=== PATIENT | female | born 1980 | race Caucasian/White ===

== ENCOUNTER 2020-12-29 10:15 | Inpatient (IN) | payer MEDICAID ==
[~2020-12-29] VITALS: Ht 162.6 cm; Wt 87.1 kg
[2020-12-29] MEDS ORDERED: METHYLERGONOVINE MALEATE 0.2 MG/ML IM PRN ×2 (10:45→23:45)
[2020-12-29] MEDS ORDERED: DEXT 5%/LR + PITOCIN 20UNITS/L 1,000 ML IV SCH (10:45)
[2020-12-29] MEDS ORDERED: BUTORPHANOL TARTRATE 2 MG/ML VIAL IV PRN (10:45)
[2020-12-29] MEDS ORDERED: NALOXONE HCL 0.4 MG/ML 1ML VIAL IM PRN (10:45)
[2020-12-29] MEDS ORDERED: LIDOCAINE HCL 1% 20ML VIAL (Pyxis) INJ INFIL SCH (10:45)
[2020-12-29] MEDS: LACTATED RINGERS 1,000 ML IV SCH ×3 (11:30→21:06)
[2020-12-29 12:29] LABS: CLARITY URINE CLEAR (CLEAR); COLOR URINE YELLOW (YELLOW); KETONES URINE TRACE (NEGATIVE); LEUKOCYTE ESTERASE URINE NEGATIVE (NEGATIVE); NITRITE URINE NEGATIVE (NEGATIVE); OCCULT BLOOD URINE NEGATIVE (NEGATIVE); PROTEIN URINE NEGATIVE (NEGATIVE); UROBILINOGEN URINE 0.2 E.U./dL (0.2-1.0)
[2020-12-29 12:38] LABS: BASOPHILS % 0.8 % (0.0-2.0); EOSINOPHILS % 0.8 % (0.0-5.0); HEMATOCRIT. 35.4 % (36.0-48.0); HEMOGLOBIN. 11.9 g/dL (12.0-16.0); INR 0.9; LYMPHOCYTES % 20.5 % (20.0-50.0); MEAN CORPUSCULAR HEMOGLOBIN 31.8 pg (28.0-32.0); MEAN CORPUSCULAR VOLUME 94.2 fL (81.0-99.0); MEAN PLATELET VOLUME 9.7 fl (7.4-10.4); MONOCYTES % 8.5 % (2.0-8.0); NEUTROPHILS % 69.4 % (40.0-76.0); PARTIAL THROMBOPLASTIN TIME 30.3 sec (23.4-31.0); PLATELET 235 x1000/uL (130-400); PROTHROMBIN TIME 10.1 sec (9.6-11.0); RED BLOOD CELL COUNT 3.75 mill/uL (4.2-5.4); RED CELL DISTRIBUTION WIDTH 12.9 % (11.6-14.6)
[2020-12-29 12:40] LABS: *BENZODIAZEPINES SCREEN URINE NEGATIVE (NEGATIVE); *COCAINE SCREEN URINE NEGATIVE (NEGATIVE); CANNABINOID URINE SCREEN NEGATIVE (NEGATIVE); METHADONE URINE SCREEN NEGATIVE (NEGATIVE); OPIATES URINE SCREEN NEGATIVE (NEGATIVE); PHENCYCLIDINE URINE SCREEN NEGATIVE (NEGATIVE)
[2020-12-29 12:41] LABS: *AMPHETAMINES SCREEN URINE NEGATIVE (NEGATIVE); *BARBITURATES SCREEN URINE NEGATIVE (NEGATIVE)
[2020-12-29 14:49] LABS: HEPATITIS B SURFACE ANTIGEN NEGATIVE
[2020-12-29] MEDS ORDERED: ROPIVACAINE HCL/PF EPIDURAL 200 ML EPI SCH (16:45)
[2020-12-29] MEDS ORDERED: ROPIVACAINE HCL/PF EPIDURAL 0 ML EPI ONE (19:54)
[2020-12-29] MEDS ORDERED: FENTANYL CITRATE/PF 50MCG/ML 2ML VIAL ONE (19:54)
[2020-12-29] MEDS ORDERED: GLYCERIN/WITCH HAZEL LEAF MEDICATED PAD TOP PRN (23:45)
[2020-12-29] MEDS ORDERED: DIPHENHYDRAMINE 25MG CAPSULE PO PRN (23:45)
[2020-12-29] MEDS ORDERED: HEMORRHOIDAL SUPP PR PRN (23:45)
[2020-12-29] MEDS ORDERED: LANOLIN OINT 7GM TUBE TOP PRN (23:45)
[2020-12-29] MEDS ORDERED: BISACODYL 10MG SUPP PR PRN (23:45)
[2020-12-29] MEDS ORDERED: BENZOCAINE/LANOLIN/ALOE VERA SPRAY TOP PRN (23:45)
[2020-12-29] MEDS ORDERED: RHO(D) IMMUNE GLOBULIN 300 MCG/SYR IM PRN (23:45)
[2020-12-29] MEDS ORDERED: IBUPROFEN 400MG TABLET PO PRN (23:45)
[2020-12-30] MEDS: DEXT 5%/LR + PITOCIN 20UNITS/L 1,000 ML IV SCH ×2 (01:30→03:12)
[2020-12-30] MEDS: IBUPROFEN 800MG TABLET PO PRN ×4 (03:08→22:06)
[2020-12-30 05:30] VITALS: BP 97/49
[2020-12-30] MEDS: MAGNESIUM/ALUMINUM HYDROXIDE/SIMETHICONE 30ML UDC PO SCH ×3 (07:30→22:05)
[2020-12-30 08:00] VITALS: BP 92/52
[2020-12-30] MEDS: SIMETHICONE 80MG TABLET CHEW PO SCH ×3 (08:00→22:05)
[2020-12-30] MEDS: PRENATAL VIT/FE FUMARATE/FA TABLET PO SCH (09:00)
[2020-12-30] MEDS ORDERED: METHYLERGONOVINE MALEATE 0.2MG TABLET PO SCH (09:00)
[2020-12-30 09:56] LABS: BASOPHILS % 0.2 % (0.0-2.0); EOSINOPHILS % 0.5 % (0.0-5.0); HEMATOCRIT. 35.1 % (36.0-48.0); HEMOGLOBIN. 11.5 g/dL (12.0-16.0); LYMPHOCYTES % 11.4 % (20.0-50.0); MEAN CORPUSCULAR HEMOGLOBIN 31.6 pg (28.0-32.0); MEAN CORPUSCULAR VOLUME 96.2 fL (81.0-99.0); MEAN PLATELET VOLUME 9.4 fl (7.4-10.4); MONOCYTES % 6.9 % (2.0-8.0); PLATELET 204 x1000/uL (130-400); RED BLOOD CELL COUNT 3.64 mill/uL (4.2-5.4); RED CELL DISTRIBUTION WIDTH 13.4 % (11.6-14.6)
[2020-12-30 15:38] VITALS: BP 109/53
[2020-12-30 19:10] VITALS: BP 95/49
[2020-12-30] MEDS ORDERED: DOCUSATE SODIUM 100MG CAPSULE PO SCH (21:00)
[2020-12-31 04:00] VITALS: BP 102/54
[2020-12-31] MEDS: MAGNESIUM/ALUMINUM HYDROXIDE/SIMETHICONE 30ML UDC PO SCH (07:30)
[2020-12-31] MEDS: PRENATAL VIT/FE FUMARATE/FA TABLET PO SCH (07:59)
[2020-12-31] MEDS: SIMETHICONE 80MG TABLET CHEW PO SCH (07:59)
[2020-12-31 08:20] VITALS: BP 100/55
[2020-12-31] MEDS ORDERED: IBUP-2030 PO (13:37)
== END 2020-12-31 14:50 | disposition home or self-care (01) | DRG 560 ==
LOC: OBSVTOIN 10:15 → 8 EST LDRP 10:15 → 8EST 12-30 06:55
PROVIDERS: ADMIT Obstetrics & Gynecology; ATTEND Obstetrics & Gynecology
PROC: 10E0XZZ Delivery of Products of Conception, External Approach (ICD-10-PCS; principal; 2020-12-30)
PROC: 3E0R3BZ Introduction of Anesthetic Agent into Spinal Canal, Percutaneous Approach (ICD-10-PCS; 2020-12-30)
PROC: 00HU33Z Insertion of Infusion Device into Spinal Canal, Percutaneous Approach (ICD-10-PCS; 2020-12-30)
DX: O41.03X0 Oligohydramnios, third trimester, not applicable or unspecified (principal); Z37.0 Single live birth; O69.81X0 Labor and delivery complicated by cord around neck, without compression, not applicable or unspecified; Z20.822 Contact with and (suspected) exposure to COVID-19; Z3A.39 39 weeks gestation of pregnancy
CPT/HCPCS: 36415; 76805; 76818; 80305; 81003; 85025; 86592; 86703; 86762; 86850; 86900; 87340; 87426; J2590; J2795; J3010; J7120; A4315